=== PATIENT | male | born 1965 | race Caucasian/White ===

== ENCOUNTER → 2019-09-12 | Outpatient (CLI) | payer BC | LOC: SJCVCIMAG 08:54 | PROVIDERS: ATTEND Internal Medicine | DX: I37.1 Nonrheumatic pulmonary valve insufficiency (principal); I48.91 Unspecified atrial fibrillation; I42.9 Cardiomyopathy, unspecified; M32.9 Systemic lupus erythematosus, unspecified ==

== ENCOUNTER → 2020-09-11 | Outpatient (CLI) | payer BC | LOC: SJCVCIMAG 09:07 | PROVIDERS: ATTEND Internal Medicine | DX: I37.1 Nonrheumatic pulmonary valve insufficiency (principal); I48.91 Unspecified atrial fibrillation; I25.5 Ischemic cardiomyopathy; I10 Essential (primary) hypertension ==